=== PATIENT | male | born 1955 | race Caucasian/White ===

== ENCOUNTER 2016-09-02 10:03 | Emergency (ER) | payer OTHER ==
[2016-09-02] MEDS ORDERED: TOPICAL SKIN ADHESIVE 1 EACH AMP TOPICAL ONE (11:36)
--- NOTE | 2016-09-02 11:54 | ED ---
General Adult HPI - General Chief complaint: Wound/Laceration Stated complaint: RT HAND LACERATION Time Seen by Provider: 09/02/16 11:04 Source: patient, RN notes reviewed Mode of arrival: ambulatory Limitations: no limitations - History of Present Illness Initial comments: Patient is a 61-year-old male who presents emergency room today with chief complaint of a laceration located to the palmar aspect of the right hand. Does admit that he was laying some Tylenol at home when he accidentally cut it on a piece of tile. Patient states his tetanus is up-to-date. Denies any other complains associated symptoms. Patient denies any recent fever, chills, shortness of breath, chest pain, back pain, abdominal pain, nausea or vomiting, numbness or tingling, dysuria or hematuria, constipation or diarrhea, headaches or visual changes, or any other complaints. - Related Data Home Medications Medication Instructions Recorded Confirmed Ibuprofen [Motrin] 800 mg PO Q8HR PRN 09/02/16 09/02/16 Simvastatin [Zocor] 10 mg PO HS 09/02/16 09/02/16 Terazosin [Hytrin] 5 mg PO HS 09/02/16 09/02/16 Previous Rx's Medication Instructions Recorded Cephalexin [Keflex] 500 mg PO Q12HR 5 Days 09/02/16 Allergies Allergy/AdvReac Type Severity Reaction Status Date / Time No Known Allergies Allergy Verified 09/02/16 10:19 Review of Systems ROS Statement: Those systems with pertinent positive or pertinent negative responses have been documented in the HPI. ROS Other: All systems not noted in ROS Statement are negative. Past Medical History Past Medical History: No Reported History History of Any Multi-Drug Resistant Organisms: None Reported Past Surgical History: No Surgical Hx Reported Past Psychological History: No Psychological Hx Reported Smoking Status: Never smoker Past Alcohol Use History: None Reported Past Drug Use History: None Reported General Exam - General Exam Comments Initial Comments: General: The patient is awake and alert, in no distress, and does not appear acutely ill. Neck: The neck is supple, there is no tenderness or JVD. Cardiovascular: There is a regular rate and rhythm. No murmur, rub or gallop is appreciated. Respiratory: Lungs are clear to auscultation, respirations are non-labored, breath sounds are equal. No wheezes, stridor, rales, or rhonchi. Musculoskeletal: Full range motion. Sensation intact. Pulses he equal bilaterally 2+. Strength 5/5. Neurological: A&O x 3. CN II-XII intact, There are no obvious motor or sensory deficits. Coordination appears grossly intact. Speech is normal. Skin: Does have 4 cm linear laceration to the thenar aspect of the right hand. Down to subcu tissue but no deep tissue involvement into tendons. Psychiatric: Normal mood and affect. Limitations: no limitations Course Vital Signs 09/02/16 10:19 Temperature 98.1 F Pulse Rate 69 Respiratory 18 Rate Blood Pressure 123/74 O2 Sat by Pulse 97 Oximetry Procedures - Procedures Initial comment: 4 cm linear laceration to the thenar aspect of the right hand. Wound was irrigated and cleaned with saline. Closed with Dermabond. Patient tolerated well. Disposition Clinical Impression: Laceration Disposition: HOME SELF-CARE Condition: Good Instructions: Laceration (ED) Additional Instructions: Please allow the glue to fall off on its own over the next 3-5 days. Please watch for any signs of infection which may include increased pain, swelling, redness, fever or chills. Please return to emergency room for any signs of infection or any other concerns. Prescriptions: Cephalexin [Keflex] 500 mg PO Q12HR 5 Days Time of Disposition: 11:53
[2016-09-02 12:20] VITALS: BP 119/69; PULSE 61; RESP 16; TEMP 98.7
== END 2016-09-02 12:19 | disposition home or self-care (01) ==
LOC: EC 10:03
DX: S61.411A Laceration without foreign body of right hand, initial encounter (principal); Z79.899 Other long term (current) drug therapy; W45.8XXA Other foreign body or object entering through skin, initial encounter; Y92.009 Unspecified place in unspecified non-institutional (private) residence as the place of occurrence of the external cause
CPT/HCPCS: 12002; 99282

== ENCOUNTER 2017-08-14 08:12 | Day surgery (SDC) | payer OTHER ==
[2017-08-11 13:04] VITALS: BMI 27.1
[~2017-08-14 08:12] MED LIST: LACTATED RINGERS 1,000 ML IV SCH
[2017-08-14] MEDS ORDERED: LIDOCAINE 1% 20 ML VIAL (10MG/ML) FOR IV START INTRADERMA ONE (08:40)
[2017-08-14 08:45] VITALS: RESP 18; TEMP 98
[2017-08-14] MEDS ORDERED: PROPOFOL 10 MG/ML 20 ML VIAL IV ONE (09:47)
[2017-08-14] MEDS ORDERED: LIDOCAINE 1% INJ 10MG/ML (20 ML MDV) ONE (09:47)
--- NOTE | 2017-08-14 10:14 | P.PCN ---
Date of Procedure: 08/14/17 Procedure(s) Performed: Procedure: Total colonoscopy. Preoperative diagnosis: Screening for neoplasia, patient has history of polyps. Postoperative diagnosis: Exam within normal limits. Preparation: HalfLytely prep. Sedation: Was provided by anesthesia. Brief clinical history: The patient is a 62-year-old male who is scheduled for this evaluation for screening for neoplasia because of history of polyps. His last exam was around 5 years ago. At this time, he has no abdominal complaints , bleeding or anemia. Procedure: With the patient on his left lateral decubitus position and after informed consent and adequate sedation, the perianal area was inspected and it did not show any fissures or fistulas. There were no masses felt on digital rectal examination. The Olympus CFQ 160L video colonoscope was then inserted in the rectum in the usual fashion and advanced to the cecum. The mucosa appeared healthy. There were no obvious polyps or tumors seen or any obvious diverticular disease or other pathology. I retroflexed the endoscope in the rectum before the endoscope was withdrawn. The patient tolerated the procedure well. Plan: The patient was reassured. He will follow up with you as planned and I recommended repeat exam in 5 years.
[2017-08-14 10:57] VITALS: BP 113/74; PULSE 52
== END 2017-08-14 11:09 | disposition home or self-care (01) ==
LOC: ORWHC2ENDO 08:12
DX: Z12.11 Encounter for screening for malignant neoplasm of colon (principal); Z86.010 Personal history of colon polyps; N40.0 Benign prostatic hyperplasia without lower urinary tract symptoms; E78.5 Hyperlipidemia, unspecified; I10 Essential (primary) hypertension; Z79.2 Long term (current) use of antibiotics; Z79.1 Long term (current) use of non-steroidal anti-inflammatories (NSAID); Z79.899 Other long term (current) drug therapy
CPT/HCPCS: J2001; J2704; G0105; 45378

== ENCOUNTER → 2018-03-14 | Outpatient (CLI) | payer OTHER ==
--- NOTE | 2018-03-14 10:32 | FL ---
ESOPHOGRAM. HISTORY: Dysphagia Esophagram was performed per the air contrast technique. The patient swallowed barium and effervesce nt crystals without difficulty or delay. Esophageal peristalsis and motility appear to be within normal limits. There is no evidence for filling defect, mass or diverticulum. No hiatal hernia seen. Subsequently single contrast cervical esophagram was performed which fails demonstrate evidence for a spiration penetration or mass. Mild hypertrophy of the cricopharyngeus musculature. IMPRESSION: Mild hypertrophy of the cricopharyngeus musculature.
== END ==
LOC: RADFLWHC 09:33
DX: M62.89 Other specified disorders of muscle (principal)
CPT/HCPCS: 74220

== ENCOUNTER 2018-06-17 12:38 | Emergency (ER) | payer OTHER ==
[2018-06-17 13:04] VITALS: BP 120/75; PULSE 74; RESP 18; TEMP 99
--- NOTE | 2018-06-17 14:02 | ED ---
Skin/Abscess/FB HPI - General Chief complaint: Skin/Abscess/Foreign Body Stated complaint: Lump in groin Time Seen by Provider: 06/17/18 13:31 Source: patient Mode of arrival: ambulatory Limitations: no limitations - History of Present Illness Initial comments: 63-year-old male patient presents to the emergency department today for evaluation of a lump to the left groin. Patient states that he noticed a lump today. Denies any pain to the site. Denies any fevers or chills. Denies any testicular pain or difficulty with urination. Patient states he does occasionally gets an irritation to the area from chafing. Patient denies any recent rash, shortness breath, chest pain, abdominal pain, nausea, vomiting, diarrhea, constipation, back pain, numbness, tingling, dizziness, weakness, hematuria, dysuria, urinary urgency, urinary frequency, headache, visual changes , or any other complaints. - Related Data Home Medications Medication Instructions Recorded Confirmed Ibuprofen [Motrin] 800 mg PO Q8HR PRN 09/02/16 08/14/17 Simvastatin [Zocor] 10 mg PO HS 09/02/16 08/14/17 Terazosin [Hytrin] 5 mg PO HS 09/02/16 08/14/17 Penicillin V Potassium [Pen Vee K] 500 mg PO QID 08/11/17 08/14/17 Previous Rx's Medication Instructions Recorded Sulfamethoxazole/Trimethoprim 1 each PO BID #20 tablet 06/17/18 [Bactrim DS 800-160 mg] Allergies Allergy/AdvReac Type Severity Reaction Status Date / Time No Known Allergies Allergy Verified 06/17/18 13:03 Review of Systems ROS Statement: Those systems with pertinent positive or pertinent negative responses have been documented in the HPI. ROS Other: All systems not noted in ROS Statement are negative. Past Medical History Past Medical History: Hyperlipidemia, Prostate Disorder Additional Past Medical History / Comment(s): current tx of tooth infection, scar tissue on lungs,hx colon polyps History of Any Multi-Drug Resistant Organisms: None Reported Past Surgical History: No Surgical Hx Reported Additional Past Surgical History / Comment(s): colonoscopy Past Anesthesia/Blood Transfusion Reactions: No Reported Reaction Additional Past Anesthesia/Blood Transfusion Reaction / Comment(s): no hx general anesthesia Past Psychological History: No Psychological Hx Reported Smoking Status: Former smoker Past Alcohol Use History: None Reported Past Drug Use History: None Reported - Past Family History Mother Family Medical History: Cancer Additional Family Medical History / Comment(s): lung General Exam Limitations: no limitations General appearance: alert, in no apparent distress, other (Physical well- developed, well-nourished adult male patient in no acute distress. Vital signs upon presentation are temperature 99.0F, pulse 74, respirations 18, blood pressure 120/75, pulse ox 99% on room air.) Eye exam: Present: normal appearance, PERRL, EOMI. Absent: scleral icterus, conjunctival injection, periorbital swelling ENT exam: Present: normal exam, normal oropharynx, mucous membranes moist Respiratory exam: Present: normal lung sounds bilaterally. Absent: respiratory distress, wheezes, rales, rhonchi, stridor Cardiovascular Exam: Present: regular rate, normal rhythm, normal heart sounds. Absent: systolic murmur, diastolic murmur, rubs, gallop, clicks GI/Abdominal exam: Present: soft, normal bowel sounds. Absent: distended, tenderness, guarding, rebound, rigid exam: Present: other (Patient has 2 x 1 cm subcutaneous nodule noted to the left groin region at the base of the scrotum. There is surrounding erythema. There is no fluctuance or evidence of drainable abscess.) Neurological exam: Present: alert, oriented X3, CN II-XII intact Psychiatric exam: Present: normal affect, normal mood Skin exam: Present: warm, dry, intact, normal color. Absent: rash Course Vital Signs 06/17/18 13:01 Temperature 99 F Pulse Rate 74 Respiratory 18 Rate Blood Pressure 120/75 O2 Sat by Pulse 99 Oximetry Medical Decision Making - Medical Decision Making 63-year-old male patient presented to the emergency department today for evaluation of lump to the left groin. Physical examination did reveal a 2 cm x 1 cm subcutaneous nodule was not tender to touch. There was some surrounding erythema. No evidence of drainable abscess. No testicular tenderness. No inguinal lymphadenopathy. We'll start patient on Bactrim discharged to follow- up with urology if symptoms do not improve. Return parameters were discussed in detail. He verbalizes understanding and agrees with this plan. Disposition Clinical Impression: Abscess Disposition: HOME SELF-CARE Condition: Good Instructions: Abscess (ED) Additional Instructions: Apply warm compresses/take warm baths. Keep area clean and dry. If symptoms persist or worsen follow up with urology for further evaluation. Return immediately for any new, worsening, or concerning symptoms. Prescriptions: Sulfamethoxazole/Trimethoprim [Bactrim DS 800-160 mg] 1 each PO BID #20 tablet Is patient prescribed a controlled substance at d/c from ED?: No Referrals: None,Stated [Primary Care Provider] - 1-2 days Time of Disposition: 14:02
== END 2018-06-17 14:15 | disposition home or self-care (01) ==
LOC: EC 12:38
DX: L02.214 Cutaneous abscess of groin (principal); E78.5 Hyperlipidemia, unspecified; N42.9 Disorder of prostate, unspecified; Z87.891 Personal history of nicotine dependence; Z79.899 Other long term (current) drug therapy
CPT/HCPCS: 99283

== ENCOUNTER 2018-07-31 15:31 | Emergency (ER) | payer OTHER ==
[2018-07-31 15:37] VITALS: BP 135/72; PULSE 86; RESP 18; TEMP 98.5
--- NOTE | 2018-07-31 15:43 | ED ---
Extremity Problem HPI - General Chief complaint: Extremity Problem,Nontraumatic Stated complaint: leg swelling Time Seen by Provider: 07/31/18 15:38 Source: patient Mode of arrival: ambulatory Limitations: no limitations - History of Present Illness Initial comments: 63-year-old male patient presents to the emergency department today for evaluation of swelling to the right calf and posterior knee. Patient states his noticed it today. States he did recently take a flight and a cruise and is concerned he may have a blood clot. Patient denies any discomfort to the leg. Denies any chest pain, trouble breathing, or palpitations. Denies any history of blood clot. Denies any use of anticoagulant or antiplatelet medications. Patient denies any recent rash, fever, chills, chest pain, abdominal pain, nausea, vomiting, diarrhea, constipation, back pain, numbness, tingling, dizziness, weakness, hematuria, dysuria, urinary urgency, urinary frequency, headache, visual changes, or any other complaints. - Related Data Home Medications Medication Instructions Recorded Confirmed Ibuprofen [Motrin] 800 mg PO Q8HR PRN 09/02/16 08/14/17 Simvastatin [Zocor] 10 mg PO HS 09/02/16 08/14/17 Terazosin [Hytrin] 5 mg PO HS 09/02/16 08/14/17 Penicillin V Potassium [Pen Vee K] 500 mg PO QID 08/11/17 08/14/17 Previous Rx's Medication Instructions Recorded Sulfamethoxazole/Trimethoprim 1 each PO BID #20 tablet 06/17/18 [Bactrim DS 800-160 mg] Allergies Allergy/AdvReac Type Severity Reaction Status Date / Time No Known Allergies Allergy Verified 06/17/18 13:03 Review of Systems ROS Statement: Those systems with pertinent positive or pertinent negative responses have been documented in the HPI. ROS Other: All systems not noted in ROS Statement are negative. Past Medical History Past Medical History: Hyperlipidemia, Prostate Disorder Additional Past Medical History / Comment(s): current tx of tooth infection, scar tissue on lungs,hx colon polyps History of Any Multi-Drug Resistant Organisms: None Reported Past Surgical History: No Surgical Hx Reported Additional Past Surgical History / Comment(s): colonoscopy Past Anesthesia/Blood Transfusion Reactions: No Reported Reaction Additional Past Anesthesia/Blood Transfusion Reaction / Comment(s): no hx general anesthesia Past Psychological History: No Psychological Hx Reported Smoking Status: Former smoker Past Alcohol Use History: None Reported Past Drug Use History: None Reported - Past Family History Mother Family Medical History: Cancer Additional Family Medical History / Comment(s): lung General Exam Limitations: no limitations General appearance: alert, in no apparent distress, other (This is a well- developed, well-nourished adult male patient in no acute distress. Vital signs upon presentation are temperature 98.5F, pulse 86, respirations 18, blood pressure 135/72, pulse ox 98% on room air.) Respiratory exam: Present: normal lung sounds bilaterally. Absent: respiratory distress, wheezes, rales, rhonchi, stridor Cardiovascular Exam: Present: regular rate, normal rhythm, normal heart sounds. Absent: systolic murmur, diastolic murmur, rubs, gallop, clicks Extremities exam: Present: full ROM, normal capillary refill, other (Recent has mild soft tissue swelling to the proximal calf and to the right posterior knee. No erythema. No tenderness. Skin is pink, warm, dry. Cap refills less than 3 seconds. Pedal and posttibial pulses are 2+ and equal bilaterally.). Absent : normal inspection, tenderness, pedal edema, joint swelling, calf tenderness Neurological exam: Present: alert, oriented X3, CN II-XII intact Psychiatric exam: Present: normal affect, normal mood Skin exam: Present: warm, dry, intact, normal color. Absent: rash Course Vital Signs 07/31/18 15:33 Temperature 98.5 F Pulse Rate 86 Respiratory 18 Rate Blood Pressure 135/72 O2 Sat by Pulse 98 Oximetry Medical Decision Making - Medical Decision Making 63-year-old male patient presents to the emergency department today for evaluation of swelling to the right calf and was see her knee. Physical examination did reveal mild soft tissue swelling to the right posterior knee and proximal calf. Neurovascular status was intact. No erythema or tenderness. Ultrasound was obtained and showed no evidence for acute DVT. It did show evidence for 2.2 complex Lopez cyst. He is instructed follow up with his primary care physician for further evaluation and management of this. He is instructed to return immediately for any new, worsening, or concerning symptoms. He verbalizes understanding and agrees with this plan. - Radiology Data Radiology results: report reviewed, image reviewed Venous Doppler duplex of the right lower extremity is obtained. Report was reviewed in its entirety. Impression by Dr. Méndez shows no evidence for DVT within the right lower extremity image from the groin to the upper calf. Findings suggest a small, mildly complex 2.2 cm Lopez cyst. Disposition Clinical Impression: Synovial cyst of popliteal space [Lopez], right knee Disposition: HOME SELF-CARE Condition: Good Instructions (If sedation given, give patient instructions): Bakers Cyst (ED) Additional Instructions: Follow up with your primary care physician for recheck in 1-2 days for recheck in 1-2 days. Return to the emergency department for any new, worsening, or concerning symptoms. Is patient prescribed a controlled substance at d/c from ED?: No Referrals: [facility],Clinic [Primary Care Provider] - 1-2 days Time of Disposition: 17:04
--- NOTE | 2018-07-31 16:33 | US ---
EXAMINATION TYPE: US venous doppler duplex LE RT DATE OF EXAM: 07/31/2018 3:43 PM COMPARISON: NONE CLINICAL HISTORY: 63-year-old male Pain. SIDE PERFORMED: Right TECHNIQUE: The lower extremity deep venous system is examined utilizing real time linear array sonog michael with graded compression, doppler sonography and color-flow sonography. FINDINGS: There is normal flow, compressibility, vascular waveforms. VESSELS IMAGED: External Iliac Vein (EIV) Common Femoral Vein Deep Femoral Vein Greater Saphenous Vein * Femoral Vein Popliteal Vein Small Saphenous Vein * Proximal Calf Veins (* superficial vessels) Right Leg: Negative for DVT. Anechoic area visualized right popliteal fossa measuring 2.2 x 0.6 x 1. 1 cm, suggestive of a small, mildly complex Lopez's cyst IMPRESSION: 1. No evidence for DVT within the right lower extremity imaged from the groin to the upper calf. 2. Findings suggest a small, mildly complex 2.2 cm Lopez's cyst.
== END 2018-07-31 17:19 | disposition home or self-care (01) ==
LOC: EC 15:31
DX: M71.21 Synovial cyst of popliteal space [Baker], right knee (principal); E78.5 Hyperlipidemia, unspecified; N42.9 Disorder of prostate, unspecified; Z87.891 Personal history of nicotine dependence; Z79.899 Other long term (current) drug therapy; Z86.010 Personal history of colon polyps; Z98.890 Other specified postprocedural states
CPT/HCPCS: 99283

== ENCOUNTER 2018-09-05 09:44 | Emergency (ER) | payer OTHER ==
[2018-09-05 09:52] VITALS: RESP 18
[2018-09-05] MEDS ORDERED: LIDOCAINE 1% INJ 10MG/ML (20 ML MDV) SQ ONE (10:16)
[2018-09-05] MEDS ORDERED: DIPH,PERTUS(ACELL)TETVAC-LF 0.5 ML VIAL IM ONE (10:17)
--- NOTE | 2018-09-05 10:18 | ED ---
Wound/Laceration HPI - General Chief Complaint: Wound/Laceration Stated Complaint: Finger laceration Time Seen by Provider: 09/05/18 10:12 Source: patient, RN notes reviewed Mode of arrival: ambulatory Limitations: no limitations - History of Present Illness Initial Comments: 63-year-old male presents emergency Department chief complaint of laceration to his left hand index finger. Patient states his last tetanus was 8 years ago. Patient states that he was pulling on a metal adjustable band states that it slipped causing a laceration to his finger. He does state that he has full range of motion denies any paresthesias. Patient states that he has no injury at this time. - Related Data Home Medications Medication Instructions Recorded Confirmed Ibuprofen [Motrin] 800 mg PO Q8HR PRN 09/02/16 09/05/18 Simvastatin [Zocor] 10 mg PO HS 09/02/16 09/05/18 Terazosin [Hytrin] 5 mg PO HS 09/02/16 09/05/18 Allergies Allergy/AdvReac Type Severity Reaction Status Date / Time No Known Allergies Allergy Verified 09/05/18 10:22 Review of Systems ROS Statement: Those systems with pertinent positive or pertinent negative responses have been documented in the HPI. ROS Other: All systems not noted in ROS Statement are negative. Past Medical History Past Medical History: Hyperlipidemia, Prostate Disorder Additional Past Medical History / Comment(s): current tx of tooth infection,scar tissue on lungs,hx colon polyps History of Any Multi-Drug Resistant Organisms: None Reported Past Surgical History: No Surgical Hx Reported Additional Past Surgical History / Comment(s): colonoscopy Past Anesthesia/Blood Transfusion Reactions: No Reported Reaction Additional Past Anesthesia/Blood Transfusion Reaction / Comment(s): no hx general anesthesia Past Psychological History: No Psychological Hx Reported Smoking Status: Former smoker Past Alcohol Use History: None Reported Past Drug Use History: None Reported - Past Family History Mother Family Medical History: Cancer Additional Family Medical History / Comment(s): lung General Exam Limitations: no limitations General appearance: alert, in no apparent distress Head exam: Present: atraumatic, normocephalic, normal inspection Neck exam: Present: normal inspection. Absent: tenderness, meningismus, lymphadenopathy Respiratory exam: Present: normal lung sounds bilaterally. Absent: respiratory distress, wheezes, rales, rhonchi, stridor Cardiovascular Exam: Present: regular rate, normal rhythm, normal heart sounds. Absent: systolic murmur, diastolic murmur, rubs, gallop, clicks Extremities exam: Present: other (Left hand second digit there is a 2 cm laceration over the dorsal aspect, patient has full range of motion no tendon involvement) Neurological exam: Present: alert, oriented X3, CN II-XII intact, reflexes normal. Absent: motor sensory deficit Skin exam: Present: warm, dry, intact, normal color. Absent: rash Course Vital Signs 09/05/18 09:50 Temperature 98.2 F Pulse Rate 60 Respiratory 18 Rate Blood Pressure 113/72 O2 Sat by Pulse 98 Oximetry Procedures - Laceration Laceration #1 Consent Obtained: verbal consent Site: hand (Left hand second digit) Size (cm): 2 Description: flap Depth: simple, single layer Anesthetic Used: lidocaine 1%, without epi Anesthesia Technique: local infiltration Amount (mls): 3 Pre-repair: wound explored, irrigated extensively, deep structures intact Type of Sutures: nylon Size of Sutures: 4-0 Number of Sutures: 5 Technique: simple, interrupted Patient Tolerated Procedure: well, no complications Medical Decision Making - Medical Decision Making 63-year-old male presents emergency Department for left hand finger laceration. This was closed using Ethilon sutures. Patient tolerated well. We discussed wound care and return parameters. Disposition Clinical Impression: Finger laceration Disposition: HOME SELF-CARE Condition: Stable Instructions (If sedation given, give patient instructions): Finger Laceration (ED), Care For Your Stitches (ED) Additional Instructions: Have sutures removed in 10 days.Please return to the Emergency Department if symptoms worsen or any other concerns. Is patient prescribed a controlled substance at d/c from ED?: No Referrals: [facility],Clinic [Primary Care Provider] - 1-2 days Time of Disposition: 10:45
[2018-09-05 11:27] VITALS: BP 127/76; PULSE 68; TEMP 97.2
== END 2018-09-05 11:26 | disposition home or self-care (01) ==
LOC: EC 09:44
DX: S61.211A Laceration without foreign body of left index finger without damage to nail, initial encounter (principal); Z23 Encounter for immunization; E78.5 Hyperlipidemia, unspecified; N42.9 Disorder of prostate, unspecified; Z87.891 Personal history of nicotine dependence; Z79.899 Other long term (current) drug therapy; W26.8XXA Contact with other sharp object(s), not elsewhere classified, initial encounter; Y92.009 Unspecified place in unspecified non-institutional (private) residence as the place of occurrence of the external cause
CPT/HCPCS: 12001; 90471; 90715; 99282

== ENCOUNTER 2018-12-15 16:43 | Emergency (ER) | payer OTHER ==
[2018-12-15 17:50] VITALS: BP 116/70; PULSE 51; RESP 18; TEMP 97.8
--- NOTE | 2018-12-15 18:08 | ED ---
General Adult HPI - General Chief complaint: Skin/Abscess/Foreign Body Stated complaint: Poison oak all over body Time Seen by Provider: 12/15/18 17:53 Source: patient Mode of arrival: ambulatory Limitations: no limitations - History of Present Illness Initial comments: Patient is a 63-year-old male presents with a chief complaint of a rash. The patient states he thinks he got poison oak. 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 He states that he gets it about once a year and that this is consistent with the previous time he's had it. The rash is on the upper extremities, anterior chest, and beltline. The rash only appears on areas that were exposed to the environment. He states they are itchy, and starting the blister. She denies any fever, chills, nausea or vomiting. - Related Data Home Medications Medication Instructions Recorded Confirmed Ibuprofen [Motrin] 800 mg PO Q8HR PRN 09/02/16 09/05/18 Simvastatin [Zocor] 10 mg PO HS 09/02/16 09/05/18 Terazosin [Hytrin] 5 mg PO HS 09/02/16 09/05/18 Previous Rx's Medication Instructions Recorded Hydrocortisone Cream 1 applic TOPICAL TID 7 Days #1 tube 12/15/18 [Hydrocortisone 2.5% Cream] hydrOXYzine HCL [Atarax] 50 mg PO TID PRN #21 tab 12/15/18 Allergies Allergy/AdvReac Type Severity Reaction Status Date / Time No Known Allergies Allergy Verified 12/15/18 17:50 Review of Systems ROS Statement: Those systems with pertinent positive or pertinent negative responses have been documented in the HPI. ROS Other: All systems not noted in ROS Statement are negative. Skin: Reports: rash Past Medical History Past Medical History: Hyperlipidemia, Prostate Disorder Additional Past Medical History / Comment(s): current tx of tooth infection,scar tissue on lungs,hx colon polyps History of Any Multi-Drug Resistant Organisms: None Reported Past Surgical History: No Surgical Hx Reported Additional Past Surgical History / Comment(s): colonoscopy Past Anesthesia/Blood Transfusion Reactions: No Reported Reaction Additional Past Anesthesia/Blood Transfusion Reaction / Comment(s): no hx general anesthesia Past Psychological History: No Psychological Hx Reported Smoking Status: Former smoker Past Alcohol Use History: None Reported Past Drug Use History: None Reported - Past Family History Mother Family Medical History: Cancer Additional Family Medical History / Comment(s): lung General Exam Limitations: no limitations General appearance: alert, in no apparent distress Head exam: Present: atraumatic, normocephalic Eye exam: Present: normal appearance ENT exam: Present: normal exam Neck exam: Present: normal inspection Respiratory exam: Present: normal lung sounds bilaterally. Absent: respiratory distress, wheezes Cardiovascular Exam: Present: regular rate, normal rhythm GI/Abdominal exam: Present: soft. Absent: distended, tenderness Rectal exam: Present: deferred Extremities exam: Present: normal inspection Back exam: Present: normal inspection Neurological exam: Present: alert, oriented X3 Psychiatric exam: Present: normal affect, normal mood Skin exam: Present: warm, dry, intact, rash (Patient has an urticarial rash on the flexor surfaces of bilateral upper extremities, anterior chest, and on the belt line.) Course Vital Signs 12/15/18 17:48 Temperature 97.8 F Pulse Rate 51 L Respiratory 18 Rate Blood Pressure 116/70 O2 Sat by Pulse 99 Oximetry Medical Decision Making - Medical Decision Making Patient presents with chief complaint rash for 3 days. On initial evaluation, vitals are stable, patient is in no acute distress. Exam consistent with a contact dermatitis, likely secondary to poison oak which the patient has known exposure. At this time, patient stable for discharge. He was prescribed hydrocortisone cream, and Vistaril for itching. He is instructed to follow up with primary care in 1-2 days, return to ED if symptoms worsen or change. Disposition Clinical Impression: Contact dermatitis, Poison oak Disposition: HOME SELF-CARE Condition: Good Instructions (If sedation given, give patient instructions): Contact Dermatitis (DC) Prescriptions: hydrOXYzine HCL [Atarax] 50 mg PO TID PRN #21 tab PRN Reason: Itching Hydrocortisone Cream [Hydrocortisone 2.5% Cream] 1 applic TOPICAL TID 7 Days #1 tube Is patient prescribed a controlled substance at d/c from ED?: No Referrals: [facility],Clinic [Primary Care Provider] - 1-2 days
== END 2018-12-15 18:25 | disposition home or self-care (01) ==
LOC: EC 16:43
DX: L23.7 Allergic contact dermatitis due to plants, except food (principal); K04.7 Periapical abscess without sinus; E78.5 Hyperlipidemia, unspecified; Z87.891 Personal history of nicotine dependence; Z79.899 Other long term (current) drug therapy; Z87.438 Personal history of other diseases of male genital organs
CPT/HCPCS: 99282

== ENCOUNTER → 2020-11-19 | Outpatient (CLI) | payer OTHER ==
--- NOTE | 2020-11-25 11:02 | P.ARTDOP ---
Arterial Doppler LOWER EXTREMITY ARTERIAL DOPPLER: DATE OF SERVICE: 11/19/2020 Reason for study: Paresthesias bilateral lower extremity. Doppler waveforms: Multiphasic bilaterally throughout. Pulse volume recording: []. Pressure gradients: None. Ankle-brachial indices: Greater than 1 bilaterally. Toe brachial indices: 0.7 on the right, 0.73 on the left Impression: Normal study.
== END | disposition home or self-care (01) ==
LOC: RADUSWWP 07:01
DX: R20.2 Paresthesia of skin (principal)
CPT/HCPCS: 93922

== ENCOUNTER → 2023-02-10 | Day surgery (SDC) | payer OTHER ==
[2023-02-08 12:51] VITALS: BMI 26.2
[~2023-02-10] MED LIST changes: +LACTATED RINGERS 1,000 ML IV ONE; +PROPOFOL 10 MG/ML 20 ML VIAL IV ONE
--- NOTE | 2023-02-10 08:16 | P.PCN ---
Date of Procedure: 02/10/23 Procedure(s) Performed: BRIEF HISTORY: Patient is a 67-year-old pleasant white male scheduled for an elective colonoscopy as a part of value should prior history of colon polyps. PROCEDURE PERFORMED: Colonoscopy with biopsy. PREOPERATIVE DIAGNOSIS: History of colon polyp. IV sedation per Anesthesia. PROCEDURE: After informed consent was obtained, the patient, was brought into the endoscopy unit. IV sedation was administered by Anesthesia under continuous monitoring. Digital rectal examination was normal. Initially the Olympus CF-160 flexible video colonoscope was then inserted in the rectum, gradually advanced into the cecum without any difficulty. Careful examination was performed as the scope was gradually being withdrawn. Ileocecal valve and the appendiceal orifice were visualized and appeared normal. Prep was excellent. Mucosa of the cecum, had a 4 mm sessile polyp that was removed by cold biopsy. Rest of the ascending colon, transverse colon, descending colon, sigmoid colon, and rectum appeared normal. Retroflexion was performed in the rectum and no lesions were seen. The patient tolerated the procedure well. IMPRESSION: 3-4 mm sessile cecal polyp status post cold biopsy Rest of the colon appeared normal RECOMMENDATIONS: Findings of this examination were discussed with the patient as well as a family. He was advised to follow with the biopsy results. If the biopsy results adenoma he can have a repeat colonoscopy in 5 years.
[2023-02-10 08:36] VITALS: BP 110/72; PULSE 56; RESP 14
== END ==
LOC: ORWHC2ENDO 06:28
PROVIDERS: ATTEND Internal Medicine Gastroenterology
DX: Z12.11 Encounter for screening for malignant neoplasm of colon (principal); D12.0 Benign neoplasm of cecum; Z86.010 Personal history of colon polyps; I10 Essential (primary) hypertension; E78.5 Hyperlipidemia, unspecified; K21.9 Gastro-esophageal reflux disease without esophagitis; Z79.899 Other long term (current) drug therapy
CPT/HCPCS: 88305; 45380; J2704